=== PATIENT | male | born 1990 | race Caucasian/White ===

== ENCOUNTER 2021-02-01 22:09 | Emergency (ER) | payer OTHER ==
[~2021-02-01] VITALS: Ht 177.8 cm; Wt 77.1 kg
[2021-02-01 22:51] VITALS: BP_SYST 129
--- NOTE | 2021-02-02 00:56 | NUR ---
Patient ambulatory to bed 1 for evaluation
--- NOTE | 2021-02-02 01:00 | NUR ---
Received patient to ER w/ c/o lac to right index finger s/p chainsaw injury sustained while at work earlier in the day per patient. Introduced self to patient, positioned for comfort. Bed to low position sr up, continue to monitor. Patient resting quietly. No acute distress noted. Vital signs within normal range.
--- NOTE | 2021-02-02 01:10 | NUR ---
ER Dr. Dye at bedside examining patient.
[2021-02-02] MEDS ORDERED: LIDOCAINE 1%, 20 ML MDV 20 ML ONE (01:13)
[2021-02-02] MEDS ORDERED: BACITRACIN ZINC 15 GM TOPICAL OINTMENT TP ONE (01:30)
[2021-02-02] MEDS ORDERED: SULF1TAB48 PO (01:35)
[2021-02-02] MEDS ORDERED: BACITRACIN 1 GM OINT TP ONE (01:36)
--- NOTE | 2021-02-02 01:41 | NUR ---
Patient given written and verbal discharge instructions and verbalizes understanding. ER MD discussed with patient the results and treatment provided. Patient in stable condition. ID arm band removed. Rx of Bactrim given. Patient educated on pain management and to follow up with PMD. Pain Scale 0. Opportunity for questions provided and answered. Medication side effect fact sheet provided. dressing to right index finger w/ non adhesive dressing.
[2021-02-02 01:42] VITALS: BP_SYST 138
== END 2021-02-02 01:41 | disposition home or self-care (01) ==
LOC: SED 22:09
DX: S61.210A Laceration without foreign body of right index finger without damage to nail, initial encounter (principal); W27.0XXA Contact with workbench tool, initial encounter; Y93.89 Activity, other specified; Y92.89 Other specified places as the place of occurrence of the external cause; Y99.8 Other external cause status
CPT/HCPCS: 99283; J2001